=== PATIENT | female | born 1990 | race Caucasian/White ===

== ENCOUNTER 2017-11-15 13:22 | Emergency (ER) | payer SELFPAY ==
[~2017-11-15] VITALS: Ht 162.6 cm; Wt 113.3 kg
[2017-11-15] MEDS ORDERED: NAPROSYN500 MG PO (14:49)
[2017-11-15 15:34] VITALS: BP 132/94
== END 2017-11-15 15:35 | disposition home or self-care (01) ==
LOC: EME 13:22
DX: S83.92XA Sprain of unspecified site of left knee, initial encounter (principal); Y93.01 Activity, walking, marching and hiking; X58.XXXA Exposure to other specified factors, initial encounter
CPT/HCPCS: 73564; 99281; 99284